=== PATIENT | female | born 1950 ===

== ENCOUNTER 2016-08-30 05:35 | Emergency (ER) | payer OTHER ==
[2016-08-30] MEDS ORDERED: BYSTOLIC5 M1 PO (06:50)
[2016-08-30] MEDS ORDERED: ELIQUIS5 M1 PO (06:50)
[2016-08-30] MEDS ORDERED: SYNTHROID100 MC1 PO (06:51)
[2016-08-30 07:18] LABS: BASO % 0.1 % (0-2); EOS % 0.3 % (0-7); EOSINOPHIL ABSOLUTE COUNT 0.1 tho/cmm (0.0-0.7); HCT-HEMATOCRIT 40.4 % (34.0-49.0); HGB-HEMOGLOBIN 13.8 gm/dl (12.0-15.5); IMMATURE GRANULOCYTES PERCENT 0.6 % (0-0.3); LYMPH % 12.3 % (20-45); LYMPH ABSOLUTE COUNT 2.2 tho/cmm (0.8-4.5); MCH (MEAN CORPUSCULAR HGB) 30.7 pg (28.0-32.0); MCHC MEAN CORPUSCULAR HGB CONC 34.2 % (32.0-36.0); MONO % 5.7 % (0-12); NEUTROPHIL ABSOLUTE COUNT 14.4 tho/cmm (1.6-8.0); NEUTROPHIL-AUTOMATED 14.4 tho/cmm (1.6-8.0); PLATELET COUNT 277 tho/cmm (150-450); RED BLOOD COUNT 4.49 mil/cmm (4.00-5.20); RED CELL DISTRIBUTION WIDTH 15.1 % (12.4-16.4); WHITE BLOOD COUNT 17.8 tho/cmm (4.0-10.0)
[2016-08-30 07:33] LABS: ANION GAP 12 mmol/L (0-20); BLOOD UREA NITROGEN 6 mg/dl (6-24); CARBON DIOXIDE-VENOUS 25 mmol/L (22-32); CHLORIDE 106 mmol/l (96-110); CREATININE 1.07 mg/dl (0.50-1.10); GLUCOSE 112 mg/dL (70-110); POTASSIUM 3.3 mmol/L (3.7-5.1); SODIUM 140 mmol/L (135-145); eGFR VALUE FOR BLACK 62 mL/Min
[2016-08-30 08:17] LABS: URINE BILIRUBIN NEGATIVE (NEG); URINE BLOOD MODERATE (NEG); URINE GLUCOSE (UA) NEGATIVE (NEG); URINE KETONE SMALL (NEG); URINE LEUKOCYTE ESTERASE POSITIVE (NEG); URINE NITRITE NEGATIVE (NEG); URINE PROTEIN MODERATE (NEG); URINE SPECIFIC GRAVITY 1.005 (1.003-1.030)
[2016-08-30 08:20] LABS: URINE APPEARANCE CLEAR; URINE COLOR YELLOW
[2016-08-30 08:32] LABS: URINE EPITHELIAL CELLS 0-2 /[HPF] (0-10); URINE RBC 0-2 /[HPF] (0-5)
[2016-08-30] MEDS ORDERED: LEVAQUIN500 M1 PO (08:46)
[2016-08-30] MEDS ORDERED: POTASSIUM CHLO10 ME2 PO (08:46)
== END 2016-08-30 09:20 ==
LOC: EDMED 05:35
PROVIDERS: Emergency Medicine
DX: J40 Bronchitis, not specified as acute or chronic (principal); J32.9 Chronic sinusitis, unspecified; N39.0 Urinary tract infection, site not specified; D72.829 Elevated white blood cell count, unspecified; E87.6 Hypokalemia; I48.91 Unspecified atrial fibrillation; Z90.89 Acquired absence of other organs; Z90.710 Acquired absence of both cervix and uterus